=== PATIENT | male | born 1935 | race Caucasian/White ===

== ENCOUNTER 2023-03-18 23:54 | Inpatient (IN) | payer MEDICARE, OTHER, SELFPAY ==
--- NOTE | ~2023-03-18 | US_ITS ---
Duplex Sonography of the right extremity: Indication: Pain and swelling Findings: Sagittal and transverse B-mode images as well as color-flow imaging were performed on the r ight femoral and popliteal veins. B-mode examination was done without and with compression in the tr ansverse plane. There is good visualization of the common femoral, proximal profunda femoral, superf icial femoral, greater saphenous, and popliteal veins. Normal flow was seen on color-flow imaging. N ormal compressibility was demonstrated. Visualized calf veins are also patent. Impression: No evidence of deep vein thrombosis involving the right lower extremity. Reviewed, dictated and finalized at location . ANIC RECOVERY Impression: No evidence of deep vein thrombosis involving the right lower extremity.
--- NOTE | ~2023-03-18 | CT_ITS ---
Non-contrast CT scan of the Abdomen and Pelvis Clinical indication: Abdominal pain Technique: 2.5 mm axial scans were obtained through the abdomen and pelvis without intravenous or or al contrast. Dose reduction technique was used on this scan by utilizing automated exposure control a nd iterative reconstruction technique. The dose-length product (DLP) was 1716.34 mGy-cm. Findings: Images through the lung bases reveal no abnormalities. There is no evidence of renal or ureteral calculi. The kidneys and the ureters are nondilated. The liver, spleen, pancreas, gallbladder, and adrenals appear normal. There is no aortic aneurysm. There is no evidence of bowel obstruction. Images through the pelvis were performed. There is no evidence of ascites or lymphadenopathy. Urinary bladder unremarkable. No pelvic mass seen. No ascites. Chronic appearing compression fracture of T12 noted. Impression: No acute abnormality. Probable chronic T12 compression fracture. Reviewed, dictated and finalized at [facility]. RINARY ANATOMIST Impression: No acute abnormality. Probable chronic T12 compression fracture.
--- NOTE | ~2023-03-18 | XR_ITS ---
Portable chest x-ray Comparison: 05/08/2018 Clinical History: Shortness of breath Findings: Lungs are clear, without focal consolidation or pleural effusion. Cardiomediastinal silho uette is stable. Bones and soft tissues are unremarkable. Impression: Clear lungs. Reviewed, dictated and finalized at location . ABAP PROGRAMMER Impression: Clear lungs.
[2023-03-18 23:55] VITALS: BP 140/58; PULSE 100; RESP 23; TEMP 36.7; O2SAT 97
[2023-03-18 23:59] VITALS: PULSE 101
[2023-03-19] VITALS (17 sets, daily range): BP systolic 95–135; BP diastolic 42–74; PULSE 62–78; RESP 14–19; TEMP 36.2–39.5; O2SAT 96–100; BMI 26.0
--- NOTE | 2023-03-19 00:02 | ECG_ITS ---
Measurements Intervals Wilkinson Rate: 104 P: AK: 0 QRS: -33 QRSD: 133 T: -3 QT: 354 QTc: 467 Interpretive Statements NORMAL SINUS RHYTHM WITH PACS INDETERMINATE AXIS RIGHT BUNDLE BRANCH BLOCK [120+ ms QRS DURATION, UPRIGHT V1, 40+ ms S IN I/aVL/V4/V5/V6] ABNORMAL ECG COMPARED TO ECG 05/08/2018 20:42:18 SINUS RHYTHM REPLACES ATRIAL FIBRILLATION Electronically Signed On 03-19-2023 7:18:22 COMB[facility] INFORMATION CENTER OFFICER by Kwan Villalobos M.D.
[2023-03-19 01:05] LABS: Basophils Absolute Auto 0.1 K/mm3 (0.0-0.1); Basophils Percent Auto 1.2 % (0.2-1.2); Eosinophils Percent Auto 0.3 % (0-4.4); Hematocrit 27.1 % (42.0-52.0); Hemoglobin 8.2 g/dL (14.0-18.0); Immature Granulocyte Absolute 0.14 K/mm3 (0.00-0.031); Immature Granulocyte Percent A 2.3 % (0-0.5); Lymphocytes Absolute Auto 0.72 K/mm3 (0.9-3.2); Mean Corpuscular HGB Conc 30.3 g/dl (32-36); Mean Corpuscular Hemoglobin 29.9 pg (26-34); Mean Corpuscular Volume 98.9 fl (80-100); Mean Platelet Volume 9.3 fl (7.4-10.4); Monocytes Percent Auto 0.3 % (2.6-8.5); Neutrophils Absolute Auto 5.1 K/mm3 (1.3-6.7); Neutrophils Percent Auto 83.9 % (45.5-73.1); Platelet Count Result 221 k/mm3 (150-375); Red Blood Count 2.74 M/mm3 (4.6-6.20); Red Cell Distribution Width 14.6 % (11.5-14.5)
[2023-03-19 01:15] LABS: Alanine Aminotransferase 17 U/L (6-50); Albumin Level 3.6 g/dL (3.5-5.1); Alkaline Phosphatase 64 U/L (38-126); Anion Gap 11 mmol/L (8-16); Aspartate Amino Transferase 34 U/L (17-59); Bilirubin,Total 0.7 mg/dL (0.2-1.3); Blood Urea Nitrogen 31 mg/dL (9-20); Calcium 8.8 mg/dL (8.4-10.2); Carbon Dioxide 18 mmol/L (22-30); Chloride 109 mmol/L (98-107); Estimated CRCL calculation 21 ml/min; Estimated Glomerular Filt Rate 27; Glucose 115 mg/dL (65-110); Potassium 4.3 mmol/L (3.4-5.0); Sodium 138 mmol/L (137-145)
[2023-03-19] MEDS: SODIUM CHLORIDE 0.9% IV 1,000 ML 999 ML IV CONT (02:36)
[2023-03-19] MEDS: ACETAMINOPHEN 500 MG TABLET 1000 MG PO (02:37)
--- NOTE | 2023-03-19 02:41 | PC.NURSE ---
Pt vomited immediately after giving oral tylenol, provider made aware. Verbal order for 650mg Tylenol suppository.
[2023-03-19 03:15] LABS: Appearance Urine Cloudy (Clear); Bacteria Urine 4+ /hpf; Bilirubin Urine Negative (Negative); Blood Urine 2+ (Negative); Color Urine Yellow (Yellow); Glucose Urine UA Negative (Negative); Ketones Urine Negative (Negative); Leukocyte Esterase Ur 1+ LEU/UL (Negative); Nitrate Urine Negative (Negative); Non Pathogenic Casts 0-2; Protein Urine Trace mg/dL (Negative); Squamous Epithelial Cell Urine None seen /hpf (Few); Urobilinogen Urine 0.2 mg/dL (<2.0); WBC Urine 21-50 /hpf
[2023-03-19] MEDS: ONDANSETRON INJ 4 MG/2 ML VIAL IV PUSH (03:15)
[2023-03-19] MEDS: ACETAMINOPHEN 650 MG SUPPOSITORY RECTAL (03:15)
[2023-03-19 03:20] LABS: Add Urine Microscopic? YES
--- NOTE | 2023-03-19 03:52 | ED.GENADULT ---
HPI - General Adult General Chief complaint: Weakness Stated complaint: SICK CASE Time Seen by Provider: 03/19/23 02:12 History of Present Illness HPI narrative: Patient is a 8-year-old gentleman who presents emergency department with chief complaint of shakiness nausea vomiting fever generalized weakness and loose stool. The patient recently had a urological procedure at another facility and reports that symptoms started this evening patient was shaking and the family noticed that his skin felt hot and he had several episodes of vomiting. Related Data Allergies Allergy/AdvReac Type Severity Reaction Status Date / Time amoxicillin Allergy Other Verified 03/19/23 02:43 Review of Systems Review of Systems: A 10 system review of systems was completed on the patient and is negative except for what is stated in the HPI. Nursing and ancillary documentation was reviewed. Exam Narrative: GENERAL: Well-appearing, well-nourished, and in no acute distress. HEAD: Normocephalic, atraumatic. EYES: PERRLA and EOMI. ENT: Nares clear, no rhinorrhea or epistaxis. Mucous membranes moist. NECK: Supple. CHEST: Clear to auscultation. No respiratory distress. HEART: Regular rate and rhythm. No murmur heard. Normal peripheral pulses. ABDOMEN: Soft, nontender, nondistended, normal active bowel sounds. EXTREMITIES: Normal range of motion. No edema. SKIN: Warm, dry, no rash. NEURO: No focal deficits. Alert and oriented x3. PSYCH: Normal mood and affect. Course Vital Signs Vital signs: Vital Signs Temperature 36.7 C 03/18/23 23:55 Pulse Rate 100 03/18/23 23:55 Respiratory Rate 23 H 03/18/23 23:55 Blood Pressure 140/58 L 03/18/23 23:55 Pulse Oximetry 97 03/18/23 23:55 Oxygen Delivery Room Air 03/18/23 23:55 Temperature 39.5 C H 03/19/23 02:30 Pulse Rate 101 H 03/18/23 23:59 Respiratory Rate 23 H 03/18/23 23:55 Blood Pressure 140/58 L 03/18/23 23:55 Pulse Oximetry 97 03/18/23 23:55 Oxygen Delivery Room Air 03/18/23 23:55 Medical Decision Making Vital Signs Vital Signs: Vital Signs Temperature 36.7 C 03/18/23 23:55 Pulse Rate 100 03/18/23 23:55 Respiratory Rate 23 H 03/18/23 23:55 Blood Pressure 140/58 L 03/18/23 23:55 Pulse Oximetry 97 03/18/23 23:55 Oxygen Delivery Room Air 03/18/23 23:55 Temperature 39.5 C H 03/19/23 02:30 Pulse Rate 101 H 03/18/23 23:59 Respiratory Rate 23 H 03/18/23 23:55 Blood Pressure 140/58 L 03/18/23 23:55 Pulse Oximetry 97 03/18/23 23:55 Oxygen Delivery Room Air 03/18/23 23:55 Lab Data 03/19/23 00:58 03/19/23 00:58 Labs: Lab Results 03/19/23 03/19/23 Range/Units 00:58 04:15 WBC 6.0 (4.5-10.0) K/mm3 RBC 2.74 L (4.6-6.20) M/mm3 Hgb 8.2 L (14.0-18.0) g/dL Hct 27.1 L (42.0-52.0) % MCV 98.9 (80-100) fl MCH 29.9 (26-34) pg MCHC 30.3 L (32-36) g/dl RDW 14.6 H (11.5-14.5) % Plt Count 221 (150-375) k/mm3 MPV 9.3 (7.4-10.4) fl Immature Gran % (Auto) 2.3 H (0-0.5) % Neut % (Auto) 83.9 H (45.5-73.1) % Lymph % (Auto) 12.0 L (18.3-44.2) % Upson % (Auto) 0.3 L (2.6-8.5) % Eos % (Auto) 0.3 (0-4.4) % Baso % (Auto) 1.2 (0.2-1.2) % Lymph # (Auto) 0.72 L (0.9-3.2) K/mm3 Upson # (Auto) 0.0 L (0.1-0.6) K/mm3 Eos # (Auto) 0.0 (0-0.3) K/mm3 Baso # (Auto) 0.1 (0.0-0.1) K/mm3 Abs Immat Gran (auto) 0.14 H (0.00-0.031) K/mm3 Absolute Neuts (auto) 5.1 (1.3-6.7) K/mm3 Absolute Nucleated RBC 0.0 (0.0-0.012) K/mm3 Nucleated RBC % 0.0 (0.0-0.2) % PT 24.0 H (11.1-14.7) Seconds INR 2.0 APTT 47.8 H (22.3-36.8) SECONDS Sodium 138 (137-145) mmol/L Potassium 4.3 (3.4-5.0) mmol/L Chloride 109 H (98-107) mmol/L Carbon Dioxide 18 L (22-30) mmol/L Anion Gap 11 (8-16) mmol/L BUN 31 H (9-20) mg/dL Creatinine 2.30 H (0.7-1.3) mg/dL Estim Creat Clear Calc 21 ml/min Queta
[2023-03-19 04:37] LABS: Lactic Acid Reflex 1.4 mmol/L (0.7-2.0); Partial Thromboplastin Time 47.8 SECONDS (22.3-36.8)
[2023-03-19 04:38] LABS: Lipase 47 U/L (23-300)
[2023-03-19 04:54] LABS: Procalcitonin 50.6 ng/mL
[2023-03-19 05:04] LABS: Influenza A QL RT-PCR Negative (Negative); Influenza B QL RT-PCR Negative (Negative); RSV RNA, RT-PCR Negative (Negative); SARS-CoV-2 RNA PCR Negative (Negative)
[2023-03-19] MEDS: ASPIRIN 81 MG CHEWABLE TABLET 324 MG PO (05:16)
[2023-03-19] MEDS: HEPARIN SODIUM 5,000 UNITS/ML VIAL 4000 UNITS IV PUSH (06:12)
[2023-03-19] MEDS: HEPARIN SOD/D5W 100 UNITS/ML 25,000 UNITS/250 ML BAG 10 UNITS IV CONT (06:13)
[2023-03-19 11:41] LABS: Basophils Absolute Auto 0.1 K/mm3 (0.0-0.1); Basophils Percent Auto 0.6 % (0.2-1.2); Hematocrit 24.1 % (42.0-52.0); Hemoglobin 7.4 g/dL (14.0-18.0); Immature Granulocyte Absolute 0.41 K/mm3 (0.00-0.031); Immature Granulocyte Percent A 2.3 % (0-0.5); Lymphocytes Absolute Auto 1.12 K/mm3 (0.9-3.2); Lymphocytes Percent Auto 6.4 % (18.3-44.2); Mean Corpuscular HGB Conc 30.7 g/dl (32-36); Mean Corpuscular Hemoglobin 29.8 pg (26-34); Mean Corpuscular Volume 97.2 fl (80-100); Mean Platelet Volume 8.8 fl (7.4-10.4); Monocytes Absolute Auto 1.1 K/mm3 (0.1-0.6); Monocytes Percent Auto 6.2 % (2.6-8.5); Neutrophils Absolute Auto 14.8 K/mm3 (1.3-6.7); Neutrophils Percent Auto 84.5 % (45.5-73.1); Platelet Count Result 171 k/mm3 (150-375); Red Blood Count 2.48 M/mm3 (4.6-6.20); Red Cell Distribution Width 14.7 % (11.5-14.5); White Blood Count 17.5 K/mm3 (4.5-10.0)
[2023-03-19 11:56] LABS: INR 1.7
[2023-03-19 12:10] LABS: Partial Thromboplastin Time 181.5 SECONDS (22.3-36.8)
--- NOTE | 2023-03-19 14:17 | PM.CNCAR ---
Assessment and Plan Assessment and plan (1) Non-ST elevation GA (NSTEMI): Code(s): I21.4 - Non-ST elevation (NSTEMI) myocardial infarction Status: Acute Plan This is an 88-year-old man with a history of atrial fibrillation back in 2019 he has not had a recognized recurrence since then. He has been seeing my partner and has been maintained on Xarelto as well as a modest dose of metoprolol. He now is hospitalized with the above described symptoms he is not having any symptoms compatible with an acute coronary syndrome he is not known to have coronary disease and he does not have any ECG evidence of this. I would conclude this is a type 2 myocardial infarction resulting from the stress of significant anemia. He also has carcinoma of the bladder and is significantly anemic at this time. In my opinion he should not be anticoagulated I will stop both the heparin and the Xarelto. We will continue him on low-dose metoprolol for the time being. He does not require and is not a candidate for invasive ischemia evaluation particularly given his lack of any chest pain symptoms. We will follow him with you during this hospitalization. Kwan Villalobos MD [facility] History of Present Illness History of Present Illness Consult date/time: 03/19/23 14:17 Reason For Visit: UTI/NSTEMI Narrative: This is a 88-year-old man I am seeing at the request of the hospitalist because of elevation in his troponin which yielded the admitting diagnosis of non ST elevation GA. The patient is a is known to my partner, Dr. Ivey but not known to me prior to this consultation. He was brought to the hospital yesterday by his family because he was feeling unwell they thought he had an infection with shaking and chills and felt distally had a fever. Apparently he was seen in the emergency room with these complaints he did have a modest fever and he was told that they thought the probably had a urinary tract infection. He is not reporting any sense of chest pain pressure heaviness. He sees my partner for follow-up regarding an episode of atrial fibrillation that occurred back in 2018 when he was here at this hospital. For that he has been managed with a low dose of metoprolol and Xarelto at 15 mg daily. For whatever reason troponin levels were sampled in the emergency room x3 sets and they are significantly elevated between 1.2 and 1.9. His electrocardiogram shows sinus rhythm with PACs and a right bundle branch block. According to his old records the right bundle branch block is not new. There are no changes of acute injury or ischemia. He has no prior history of coronary artery disease. He does have a somewhat complicated history of carcinoma of his bladder at which is being managed elsewhere as well as a history of pain management injections in his low back. He states that after a recent pain management injection he has had difficulty with pain in the right leg and swelling in the right leg. His PCP had him do a lower extremity Doppler within the last week to rule out a blood clot. The he says that was negative for evidence of a DVT. Following admission to the hospital he was placed on intravenous heparin and we were asked to see him in consultation. Of concern his hemoglobin has come down g. He says that he has been known to have borderline anemia in the past but his PCP has not indicated that he has a significant problem with anemia. He has intravenous heparin running at this time I come in the room to see him as stated above he is also anticoagulated with oral Xarelto. Review of Systems Constitutional: Constitutional: Reports lethargy Eyes: Eyes: Reports no additional eye complaints ENT: Reports system reviewed and no additional complaints, except as documented Cardiovascular: Cardiovascular: Reports no additional cardiovascular complaints Respiratory: Respiratory: Reports no additional respiratory complaints Gastrointestinal: Gastrointestinal: Rep
--- NOTE | 2023-03-19 14:17 | PC.NURSE ---
Reported Critical Trop of 1.810, aPTT 181.5 Heparin placed on Hold due to Critical aPtt per protocol. Notified Marilyn Cintron NP with no new interventions needed at this time 1357 Entry delayed due to pt care coordination
--- NOTE | 2023-03-19 14:33 | PM.IMHP ---
H&P: HPI History of Present Illness Date/Time: 03/19/23 14:15 Chief Complaint: Multiple complaints. Narrative: This is a very pleasant 88-year-old gentleman with paroxysmal atrial fibrillation on anticoagulation, bladder cancer, chronic kidney disease, and chronic anemia who presented to the emergency department via EMS from home for evaluation of multiple complaints. The patient provides the following history. He had an outpatient cystoscopy done on on Wednesday at [facility] in [place] and was feeling fine up until yesterday evening when he developed sudden and uncontrollable shivers with profound weakness, nausea, and vomiting. He presented to the ER just before midnight with stable vital signs however he spiked a temperature to 103.1? F and his blood pressures dropped shortly thereafter. A broad workup was initiated and he was found to have a WBC count of 6.0 although that increased to 17.5 this morning, hemoglobin 8.2, BUN 31, creatinine 2.30, lactic acid 1.4, troponin 1.290, procalcitonin 50.6. UA showed 2+ blood, 1+ leukocyte esterase, 11-20 RBC, 21-50 WBC, 4+ bacteria. CT of the abdomen and pelvis showed no acute findings. EKG showed a sinus rhythm with PACs, intermediate axis, and right bundle branch block. Intervention in the ED included a 2 liter bolus of normal saline, 1 gram ceftriaxone for UTI (has had mild dysuria since cystoscopy), and he was started on a heparin drip given his troponin elevation (denies chest pain). Of the time my evaluation he is feeling much better and he does not have any current complaints. He specifically denies headache, vertigo, focal weakness, paresthesias, facial droop, difficulty speaking and swallowing, neck ache, sinus congestion, sore throat, cough, pleuritic pain, shortness of breath, abdominal pain, hematemesis, melena, hematochezia, diarrhea, and hematuria. Review of Systems Review of Systems: Twelve systems were reviewed and are negative except as for HPI. [facility] Past Medical History Medical History (Updated 03/19/23 @ 14:53 by Colette Mcgee PA-C) Arthritis Bladder cancer Chronic anemia Chronic anticoagulation Chronic kidney disease, stage 3 Paroxysmal atrial fibrillation Surgical History Surgical History (Updated 03/19/23 @ 22:02 by Colette Mcgee PA-C) History of cataract extraction (2022) History of cystoscopy Family History Family History Father Prostate carcinoma Social History Social History (Updated 03/19/23 @ 22:04 by Colette Mcgee PA-C) Social History: Surrogate medical decision maker: Donya Lui, spouse. Code status: Full code. Smoking status: Former smoker Smoking end date: 04/09/1967 Additional living arrangements comments: Lives with spouse in [place]. 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 Meds Home Medications and Allergies Home Medications Medication Instructions Recorded Confirmed Type cholecalciferol (vitamin D3) 2,000 unit PO DAILY 03/19/23 03/19/23 History ferrous sulfate 324 mg PO DAILY 03/19/23 03/19/23 History finasteride 5 mg tablet 5 mg PO DAILY 03/19/23 03/19/23 History folic acid 1 mg PO DAILY 03/19/23 03/19/23 History metoprolol tartrate 25 mg tablet 12.5 mg BID 03/19/23 03/19/23 History rivaroxaban 15 mg tablet (Xarelto) 15 mg PO DAILY 03/19/23 03/19/23 History tamsulosin 0.4 mg capsule 0.4 mg PO DAILY 03/19/23 03/19/23 History Allergies Allergy/AdvReac Type Severity Reaction Status Date / Time amoxicillin Allergy Other Verified 03/19/23 02:43 Vital Signs Vital Signs - 24 hr 03/18/23 23:55 03/18/23 23:59 03/19/23 02:30 Temperature 98.0 F 103.1 F H Pulse Rate 100 101 H Respiratory Rate 23 H Blood Pressure 140/58 L Pulse Oximetry 97 Oxygen Delivery Room Air 03/19/23 08:19 03/19/23 08:30 03/19/23 08:45 Temperature Pulse Rate 78 78 73 Respiratory Rate 17 19 18
--- NOTE | 2023-03-19 16:28 | PC.NURSE ---
The Spouse requested that her number be updated in the chart to reflect [phone]. Per admitting The number will be updated to reflect the needed changes
[2023-03-19] MEDS: MEROPENEM 1 GM/NS 100 ML 1 GM/100 ML BAG IVPB (17:57)
[2023-03-19] MEDS: LACTATED RINGERS 1,000 ML 80 ML IV CONT (17:59)
[2023-03-19 18:53] LABS: Partial Thromboplastin Time 52.8 SECONDS (22.3-36.8)
[2023-03-20] VITALS (19 sets, daily range): BP systolic 94–137; BP diastolic 52–63; PULSE 58–97; RESP 16–20; TEMP 36.3–37.2; O2SAT 98–100
--- NOTE | 2023-03-20 | ECHO_ITS ---
Patient Info Name: Job Jacques Age: 88 years : 1935 Gender: Male Ht: 69 in Wt: 169 lbs BSA: 1.94 m2 HR: 110 bpm BP: 94 / 53 mmHg Heart Rhythm: Sinus Rhythm Technical Quality: Fair Exam Date: 03/20/2023 10:36 AM Exam Location: Echo Lab Exam Room: [facility] Patient Status: Inpatient Admit Date: 03/19/2023 Staff Ordering Physician: Mamadou Harding MD Cocoa Bean Cleaner: Gracy Herrera RDCS Attending Provider: Natalee Hastings Referring Physician: Mehdi HERNANDEZ; Exam Type: CA echo doppler color flow Study Info Indications - NSTEMI AFIB Complete two-dimensional, color flow and Doppler transthoracic echocardiogram is performed. Summary 1. Complete two-dimensional, color flow and Doppler transthoracic echocardiogram is performed. 2. Left ventricular chamber dimension is normal. 3. Left ventricular systolic function is normal, estimated at 55-60%. 4. There is mildly increased left ventricular wall thickness. 5. The left ventricular diastolic function is grade I diastolic dysfunction. 6. The basal inferoseptal, mid inferoseptal, and basal anteroseptal are hypokinetic. 7. Left atrial chamber dimension is mildly enlarged. 8. There is mild mitral valve regurgitation. 9. There is mild tricuspid valve regurgitation. 10. Mild pulmonary hypertension, estimated pulmonary arterial systolic pressure is 38 mmHg. 11. There is mild pulmonic regurgitation. Left Ventricle Left ventricular chamber dimension is normal. Left ventricular systolic function is normal, estimated at 55-60%. There is mildly increased left ventricular wall thickness. The left ventricular diastolic function is grade I diastolic dysfunction. The basal inferoseptal, mid inferoseptal, and basal anteroseptal are hypokinetic. All other wade appear normal. Right Ventricle Right ventricular chamber dimension is normal. Right ventricular systolic function is normal. Left Atria Left atrial chamber dimension is mildly enlarged. Right Atria Right atrial chamber dimension is normal. Atrial Septum Intact interatrial septum visualized by color flow imaging. Aortic Valve The aortic valve is probable trileaflet. There is mild aortic valve sclerosis. There is no aortic valve stenosis. There is trace aortic valve regurgitation. Pulmonic Valve The pulmonic valve is normal. There is no pulmonic valve stenosis. There is mild pulmonic regurgitation. Mitral Valve The mitral valve has normal leaflets. There is no mitral valve stenosis. There is mild mitral valve regurgitation. Tricuspid Valve The tricuspid valve leaflets are normal. There is no significant tricuspid valve stenosis. There is mild tricuspid valve regurgitation. Mild pulmonary hypertension, estimated pulmonary arterial systolic pressure is 38 mmHg. Pericardium/Pleural The pericardium appears normal. There is no pericardial effusion. Inferior Vena Cava Normal inferior vena cava with >50% collapse upon inspiration consistent with normal right atrial pressure, 10 mmHg. Aorta The aortic root size at the sinus of Valsalva is normal. Left Ventricular Outflow Tract Name Value Normal LVOT 2D LVOT Diameter 2.1 cm LVOT Doppler LVOT Peak Gradient
[2023-03-20] MEDS: METOPROLOL TARTRATE 12.5 MG TABLET BY MOUTH ×3 (01:03→20:23)
[2023-03-20] MEDS: ACETAMINOPHEN 325 MG TABLET 650 MG PO ×2 (03:57→18:52)
[2023-03-20] MEDS: MEROPENEM 1 GM/NS 100 ML 1 GM/100 ML BAG IVPB ×2 (04:00→18:53)
[2023-03-20 04:56] LABS: Basophils Absolute Auto 0.1 K/mm3 (0.0-0.1); Basophils Percent Auto 1.1 % (0.2-1.2); Eosinophils Percent Auto 0.2 % (0-4.4); Hematocrit 26.7 % (42.0-52.0); Hemoglobin 8.2 g/dL (14.0-18.0); Immature Granulocyte Percent A 1.1 % (0-0.5); Lymphocytes Absolute Auto 0.69 K/mm3 (0.9-3.2); Lymphocytes Percent Auto 7.8 % (18.3-44.2); Mean Corpuscular HGB Conc 30.7 g/dl (32-36); Mean Corpuscular Hemoglobin 29.9 pg (26-34); Mean Corpuscular Volume 97.4 fl (80-100); Mean Platelet Volume 9.6 fl (7.4-10.4); Monocytes Absolute Auto 0.3 K/mm3 (0.1-0.6); Monocytes Percent Auto 3.3 % (2.6-8.5); Neutrophils Absolute Auto 7.7 K/mm3 (1.3-6.7); Neutrophils Percent Auto 86.5 % (45.5-73.1); Platelet Count Result 188 k/mm3 (150-375); Red Blood Count 2.74 M/mm3 (4.6-6.20); Red Cell Distribution Width 14.8 % (11.5-14.5); White Blood Count 8.9 K/mm3 (4.5-10.0)
[2023-03-20 05:10] LABS: Anion Gap 9 mmol/L (8-16); Blood Urea Nitrogen 34 mg/dL (9-20); Calcium 8.4 mg/dL (8.4-10.2); Carbon Dioxide 19 mmol/L (22-30); Chloride 113 mmol/L (98-107); Estimated CRCL calculation 21 ml/min; Estimated Glomerular Filt Rate 27; Glucose 106 mg/dL (65-110); Magnesium 2.2 mg/dL (1.6-2.3); Potassium 3.9 mmol/L (3.4-5.0); Sodium 141 mmol/L (137-145)
[2023-03-20] MEDS: TAMSULOSIN HCL 0.4 MG CAPSULE PO (09:14)
[2023-03-20] MEDS: CHOLECALCIFEROL 1,000 UNITS TABLET 2000 UNITS PO (09:14)
[2023-03-20] MEDS: FINASTERIDE 5 MG TABLET PO (09:14)
[2023-03-20] MEDS: FOLIC ACID 1 MG TABLET PO (09:14)
[2023-03-20] MEDS: FERROUS SULFATE 325 MG TABLET DR BY MOUTH (09:14)
--- NOTE | 2023-03-20 09:20 | PM.PNCARD ---
Progress Note: A&P Assessment and Plan (1) Non-ST elevation UT (NSTEMI): Code(s): I21.4 - Non-ST elevation (NSTEMI) myocardial infarction Status: Acute Assessment and Plan: Likely type 2 from significant anemia. Hold anticoagulation. Continue metoprolol. Also hold off on anti-platelet therapy given his anemia. Will order a 2D echocardiogram Doppler. Will also add a statin to regimen the form atorvastatin 20 mg daily Plan This is an 88-year-old man with a history of atrial fibrillation back in 2019 he has not had a recognized recurrence since then. He has been seeing my partner and has been maintained on Xarelto as well as a modest dose of metoprolol. He now is hospitalized with the above described symptoms he is not having any symptoms compatible with an acute coronary syndrome he is not known to have coronary disease and he does not have any ECG evidence of this. I would conclude this is a type 2 myocardial infarction resulting from the stress of significant anemia. He also has carcinoma of the bladder and is significantly anemic at this time. In my opinion he should not be anticoagulated I will stop both the heparin and the Xarelto. We will continue him on low-dose metoprolol for the time being. He does not require and is not a candidate for invasive ischemia evaluation particularly given his lack of any chest pain symptoms. We will follow him with you during this hospitalization. Subjective Date/time seen: 03/20/23 09:20 Interval history: 88-year-old admitted for UTI Date of service 03/20 24: He feels fine and without chest pain or shortness of breath. Review of Systems Constitutional: Constitutional: Reports lethargy Eyes: Eyes: Reports no additional eye complaints ENT: Reports system reviewed and no additional complaints, except as documented Cardiovascular: Cardiovascular: Reports no additional cardiovascular complaints Respiratory: Respiratory: Reports no additional respiratory complaints Gastrointestinal: Gastrointestinal: Reports no additional gastrointestinal complaints Genitourinary: Genitourinary: Reports no additional male genitourinary complaints Neurologic: Reports system reviewed and no additional complaints, except as documented Endocrine: Endocrine: Reports no additional endocrine complaints Hematologic/Lymphatic: Hematologic/Lymphatic: Reports no additional hematologic/lymphatic complaints Allergic/Immunologic: Allergic/Immunologic: Reports no additional allergic/immunologic complaints Exam Const: General: comfortable HENMT: Mouth: Yes moist mucous membranes Eyes: Sclera: sclerae normal Neck: Neck: supple and no JVD Other: Carotid pulses are intact normal in character bilaterally Resp: Effort & Inspection: normal respiratory effort Auscultation: clear to auscultation bilaterally Cardio: Rate: regular rate Rhythm: regular rhythm Other: Occasional extrasystoles, very soft systolic murmur does not radiate from the left sternal border GI: Auscultation: normal bowel sounds Skin: General skin exam: normal color Neuro: Speech: normal speech Other: Alert and oriented x3 Extrem: Other: 1+ right lower extremity Psych: Affect: normal affect Objective Data Vital Signs Vital Signs: Vital Signs - 24 hr 03/19/23 09:26 03/19/23 09:29 03/19/23 11:41 Temperature 36.3 C L Pulse Rate 71 Respiratory Rate 14 Blood Pressure 135/74 96/50 L Pulse Oximetry 100 Oxygen Delivery Room Air 03/19/23 11:49 03/19/23 12:00 03/19/23 12:40 Temperature 36.2 C L Pulse Rate 64 62 63 Respiratory Rate 18 Blood Pressure 95/48 L Pulse Oximetry 99 Oxygen Delivery 03/19/23 16:05 03/19/23 16:00 03/19/23 14:00 Temperature 36.4 C Pulse Rate 67 63 Respiratory Rate 16 Blood Pressure 101/42 L Pulse Oximetry 99 Oxygen Delivery Room Air 03/19/23 16:00 03/19/23 18:00 03/19/23 20:00 Temperature 36.4
--- NOTE | 2023-03-20 13:09 | P.PNIM_ITS ---
Progress Note: A&P Assessment and Plan (1) Sepsis: Code(s): A41.9 - Sepsis, unspecified organism Status: Acute Assessment and Plan: * No longer meeting sepsis criteria. * Continue Abx of Meropenem awaiting urine cx results. * Continue to monitor VS and trend labs. (2) Urinary tract infection: Code(s): N39.0 - Urinary tract infection, site not specified Status: Acute Assessment and Plan: * Continue meropenem. * Await culture report and adjust abx therapy as needed. (3) Acute on chronic kidney failure: Code(s): N17.9 - Acute kidney failure, unspecified; N18.9 - Chronic kidney disease, unspecified Status: Acute Assessment and Plan: * Baseline 1.5-1.6 historically. Current Cr is 2.3. * Continue IVF of LR at 80 ml/hr for hydration. * Monitor labs and trend (4) Non-ST elevation myocardial infarction (NSTEMI): Code(s): I21.4 - Non-ST elevation (NSTEMI) myocardial infarction Status: Acute Assessment and Plan: * Cardiology co-managing. * Xarelto held per their recommendations secondary to pt being chronically anemic. Will also avoid any anti-platelet medications. * No s/s of ACS or complaints of CP. * Cardiology added statin of Lipitor 20 mg to medications and recommended continuation of Beta Giovani. * No EKG changes to define ACS. Pt in NSR at the time of my exam. * ECHO obtained today. (5) Paroxysmal atrial fibrillation: Code(s): I48.0 - Paroxysmal atrial fibrillation Status: Acute Assessment and Plan: * SCD's ordered in the setting that we are holding Xarelto per Cardiology recs. * Monitor on telemetry. * Continue Beta giovani for rate control. (6) Chronic anticoagulation: Code(s): Z79.01 - longterm (current) use of anticoagulants Status: Acute Assessment and Plan: * Currently holding Xarelto. (7) Bladder cancer: Code(s): C67.9 - Malignant neoplasm of bladder, unspecified Status: Acute Assessment and Plan: * Most recent cystoscopy was three days ago. No malignancies were appreciated according to the pt. (8) Chronic anemia: Code(s): D64.9 - Anemia, unspecified Status: Acute Assessment and Plan: * Chronic in nature, likely secondary to CKD. * Continue to monitor and trend serial labs including CBC. * No acute s/s of acute bleeding. (9) Edema of right lower extremity: Code(s): R60.0 - Localized edema Status: Chronic Assessment and Plan: * Pt states has been present for the past three months. * As pt has pain and he states the swelling is persistent, will order venous doppler to rule out any DVT. Time Spent With Patient Time with patient: 25 - 35 minutes Subjective Date/time seen: 03/20/23 1030 Interval history: This pt was examined at the bedside this AM after he was admitted overnight with NSTEMI, Sepsis, UTI, and EDIE. He has been evaluated by Cardiology who deemed his elevated trops to be secondary to his significant anemia, and therefore anticoagulation is being held and they do not recommend starting any anti- platelet therapy. He had ECHO performed today with results pending and the pt has been without any acute complaints of CP or ACS. His EKG at the time of my exam demonstrated NSR. Atorvastatin 20 mg po daily was added to his regimen today by Cardiology. He continues to remain on IV abx of Meropenem for his UTI, and is no longer meeting Sepsis criteria. We are currently awaiting results of culture and will adjust therapy as needed. Pt. has no new complaints today but does alonso
--- NOTE | 2023-03-20 13:09 | PM.IMPN ---
Progress Note: A&P Assessment and Plan (1) Sepsis: Code(s): A41.9 - Sepsis, unspecified organism Status: Acute Assessment and Plan: No longer meeting sepsis criteria. Continue Abx of Meropenem awaiting urine cx results. Continue to monitor VS and trend labs. (2) Urinary tract infection: Code(s): N39.0 - Urinary tract infection, site not specified Status: Acute Assessment and Plan: Continue meropenem. Await culture report and adjust abx therapy as needed. (3) Acute on chronic kidney failure: Code(s): N17.9 - Acute kidney failure, unspecified; N18.9 - Chronic kidney disease, unspecified Status: Acute Assessment and Plan: Baseline 1.5-1.6 historically. Current Cr is 2.3. Continue IVF of LR at 80 ml/hr for hydration. Monitor labs and trend (4) Non-ST elevation myocardial infarction (NSTEMI): Code(s): I21.4 - Non-ST elevation (NSTEMI) myocardial infarction Status: Acute Assessment and Plan: Cardiology co-managing. Xarelto held per their recommendations secondary to pt being chronically anemic. Will also avoid any anti-platelet medications. No s/s of ACS or complaints of CP. Cardiology added statin of Lipitor 20 mg to medications and recommended continuation of Beta Giovani. No EKG changes to define ACS. Pt in NSR at the time of my exam. ECHO obtained today. (5) Paroxysmal atrial fibrillation: Code(s): I48.0 - Paroxysmal atrial fibrillation Status: Acute Assessment and Plan: SCD's ordered in the setting that we are holding Xarelto per Cardiology recs. Monitor on telemetry. Continue Beta giovani for rate control. (6) Chronic anticoagulation: Code(s): Z79.01 - detention (current) use of anticoagulants Status: Acute Assessment and Plan: Currently holding Xarelto. (7) Bladder cancer: Code(s): C67.9 - Malignant neoplasm of bladder, unspecified Status: Acute Assessment and Plan: Most recent cystoscopy was three days ago. No malignancies were appreciated according to the pt. (8) Chronic anemia: Code(s): D64.9 - Anemia, unspecified Status: Acute Assessment and Plan: Chronic in nature, likely secondary to CKD. Continue to monitor and trend serial labs including CBC. No acute s/s of acute bleeding. (9) Edema of right lower extremity: Code(s): R60.0 - Localized edema Status: Chronic Assessment and Plan: Pt states has been present for the past three months. As pt has pain and he states the swelling is persistent, will order venous doppler to rule out any DVT. Time Spent With Patient Time with patient: 25 - 35 minutes Subjective Date/time seen: 03/20/23 1030 Interval history: This pt was examined at the bedside this AM after he was admitted overnight with NSTEMI, Sepsis, UTI, and EDIE. He has been evaluated by Cardiology who deemed his elevated trops to be secondary to his significant anemia, and therefore anticoagulation is being held and they do not recommend starting any anti-platelet therapy. He had ECHO performed today with results pending and the pt has been without any acute complaints of CP or ACS. His EKG at the time of my exam demonstrated NSR. Atorvastatin 20 mg po daily was added to his regimen today by Cardiology. He continues to remain on IV abx of Meropenem for his UTI, and is no longer meeting Sepsis criteria. We are currently awaiting results of culture and will adjust therapy as needed. Pt. has no new complaints today but does mention to me that he has been worked up recently for persistent swelling of the RLE for the past three weeks and believes he had a negative venous doppler, but unsure of when. He states his PCP is sending him to a vascular surgeon for further evaluation, but does endorse some pain up on the distal RLE. Will obtain a venous doppler while here. Review of Systems Review of Systems: All systems review
[2023-03-21] VITALS (14 sets, daily range): BP systolic 101–143; BP diastolic 47–85; PULSE 60–87; RESP 16–18; TEMP 36.1–38.3; O2SAT 97–100
[2023-03-21] MEDS: LACTATED RINGERS 1,000 ML 80 ML IV CONT (02:11)
[2023-03-21] MEDS: MEROPENEM 1 GM/NS 100 ML 1 GM/100 ML BAG IVPB (04:08)
[2023-03-21 05:23] LABS: Basophils Absolute Auto 0.1 K/mm3 (0.0-0.1); Basophils Percent Auto 2.1 % (0.2-1.2); Hemoglobin 7.5 g/dL (14.0-18.0); Immature Granulocyte Absolute 0.11 K/mm3 (0.00-0.031); Immature Granulocyte Percent A 2.9 % (0-0.5); Lymphocytes Percent Auto 39.1 % (18.3-44.2); Mean Corpuscular HGB Conc 31.3 g/dl (32-36); Mean Corpuscular Hemoglobin 30.1 pg (26-34); Mean Corpuscular Volume 96.4 fl (80-100); Monocytes Absolute Auto 0.6 K/mm3 (0.1-0.6); Monocytes Percent Auto 15.9 % (2.6-8.5); Neutrophils Absolute Auto 1.5 K/mm3 (1.3-6.7); Platelet Count Result 159 k/mm3 (150-375); Red Blood Count 2.49 M/mm3 (4.6-6.20); Red Cell Distribution Width 14.6 % (11.5-14.5); White Blood Count 3.8 K/mm3 (4.5-10.0)
[2023-03-21 05:37] LABS: Alanine Aminotransferase 15 U/L (6-50); Albumin Level 2.8 g/dL (3.5-5.1); Alkaline Phosphatase 53 U/L (38-126); Anion Gap 4 mmol/L (8-16); Aspartate Amino Transferase 37 U/L (17-59); Bilirubin,Total 0.4 mg/dL (0.2-1.3); Blood Urea Nitrogen 25 mg/dL (9-20); Calcium 8.3 mg/dL (8.4-10.2); Carbon Dioxide 24 mmol/L (22-30); Chloride 111 mmol/L (98-107); Estimated CRCL calculation 24 ml/min; Estimated Glomerular Filt Rate 32; Glucose 111 mg/dL (65-110); Sodium 139 mmol/L (137-145)
[2023-03-21 05:56] LABS: Platelet Estimate Adequate (Adequate)
[2023-03-21 05:59] LABS: Anisocytosis 1+ (NORMAL); Hypochromasia 1+ (NORMAL); Microcytosis 2+ (NORMAL); Platelet Clumps Present; Poikilocytosis 1+ (NORMAL)
[2023-03-21 06:00] LABS: Burr Cells 1+ (NORMAL); Ovalocytes 1+ (NORMAL)
[2023-03-21 06:03] LABS: Schistocytes None Seen (NORMAL)
--- NOTE | 2023-03-21 07:50 | P.PNIM_ITS ---
Progress Note: A&P Assessment and Plan (1) Sepsis: Code(s): A41.9 - Sepsis, unspecified organism Status: Acute Assessment and Plan: * No longer meeting sepsis criteria. * Change Abx from Meropenem to Cipro based on sensitivity results and allergy hx. Urine culture grew out E coli. * Continue to monitor VS and trend labs. * No Bacteremia (2) Urinary tract infection: Code(s): N39.0 - Urinary tract infection, site not specified Status: Acute Assessment and Plan: * E.coli with pansensitivity present. * Meropenem changed to po Cipro. (3) Acute on chronic kidney failure: Code(s): N17.9 - Acute kidney failure, unspecified; N18.9 - Chronic kidney disease, unspecified Status: Acute Assessment and Plan: * Baseline 1.5-1.6 historically. Current Cr is trending back to baseline and is currently 2.0. * Continue IVF of LR at 80 ml/hr for hydration. * Monitor labs and trend (4) Non-ST elevation myocardial infarction (NSTEMI): Code(s): I21.4 - Non-ST elevation (NSTEMI) myocardial infarction Status: Acute Assessment and Plan: * Cardiology co-managing. * Xarelto held per their recommendations secondary to pt being chronically anemic with waxing and waning hemoglobin. Will also avoid any anti-platelet medications. * No s/s of ACS or complaints of CP. * Cardiology added statin of Lipitor 20 mg to medications and recommended continuation of Beta Giovani. * No EKG changes to define ACS. Pt in NSR at the time of my exam. * ECHO obtained yesterday that shows normal left ventricular systolic function with an ejection fraction estimated to be 55-60%. There is grade 1 diastolic dysfunction and mild pulmonary hypertension. (5) Paroxysmal atrial fibrillation: Code(s): I48.0 - Paroxysmal atrial fibrillation Status: Acute Assessment and Plan: * SCD's ordered in the setting that we are holding Xarelto per Cardiology recs. * Monitor on telemetry. * Continue Beta giovani for rate control. * May move out of IMU. (6) Chronic anticoagulation: Code(s): Z79.01 - long-term (current) use of anticoagulants Status: Acute Assessment and Plan: * Currently holding Xarelto per cardiology recommendations. (7) Bladder cancer: Code(s): C67.9 - Malignant neoplasm of bladder, unspecified Status: Acute Assessment and Plan: * Most recent cystoscopy was this past week. No malignancies were appreciated according to the pt. (8) Chronic anemia: Code(s): D64.9 - Anemia, unspecified Status: Acute Assessment and Plan: * Chronic in nature, likely secondary to CKD. * Continue to monitor and trend serial labs including CBC. * No acute s/s of acute bleeding. (9) Edema of right lower extremity: Code(s): R60.0 - Localized edema Status: Chronic Assessment and Plan: * Pt states has been present for the past three months. * As pt has pain and he states the swelling is persistent, will order venous doppler to rule out any DVT. Plan I discussed today's plan care with patient, all questions were answered to the patient's satisfaction he agrees with plan care. Time Spent With Patient Time with patient: 25 - 35 minutes Subjective Date/time seen: 03/21/23 07:50 Interval history: This very pleasant 88-year-old male patient was examined at the bedside today in interval assessment. He reports he slept well overnight, has no acute complaints other than being sore from the pressure applied yesterday during his echocardiogram
--- NOTE | 2023-03-21 07:50 | PM.IMPN ---
Progress Note: A&P Assessment and Plan (1) Sepsis: Code(s): A41.9 - Sepsis, unspecified organism Status: Acute Assessment and Plan: No longer meeting sepsis criteria. Change Abx from Meropenem to Cipro based on sensitivity results and allergy hx. Urine culture grew out E coli. Continue to monitor VS and trend labs. No Bacteremia (2) Urinary tract infection: Code(s): N39.0 - Urinary tract infection, site not specified Status: Acute Assessment and Plan: E.coli with pansensitivity present. Meropenem changed to po Cipro. (3) Acute on chronic kidney failure: Code(s): N17.9 - Acute kidney failure, unspecified; N18.9 - Chronic kidney disease, unspecified Status: Acute Assessment and Plan: Baseline 1.5-1.6 historically. Current Cr is trending back to baseline and is currently 2.0. Continue IVF of LR at 80 ml/hr for hydration. Monitor labs and trend (4) Non-ST elevation myocardial infarction (NSTEMI): Code(s): I21.4 - Non-ST elevation (NSTEMI) myocardial infarction Status: Acute Assessment and Plan: Cardiology co-managing. Xarelto held per their recommendations secondary to pt being chronically anemic with waxing and waning hemoglobin. Will also avoid any anti-platelet medications. No s/s of ACS or complaints of CP. Cardiology added statin of Lipitor 20 mg to medications and recommended continuation of Beta Giovani. No EKG changes to define ACS. Pt in NSR at the time of my exam. ECHO obtained yesterday that shows normal left ventricular systolic function with an ejection fraction estimated to be 55-60%. There is grade 1 diastolic dysfunction and mild pulmonary hypertension. (5) Paroxysmal atrial fibrillation: Code(s): I48.0 - Paroxysmal atrial fibrillation Status: Acute Assessment and Plan: SCD's ordered in the setting that we are holding Xarelto per Cardiology recs. Monitor on telemetry. Continue Beta giovani for rate control. May move out of IMU. (6) Chronic anticoagulation: Code(s): Z79.01 - care home (current) use of anticoagulants Status: Acute Assessment and Plan: Currently holding Xarelto per cardiology recommendations. (7) Bladder cancer: Code(s): C67.9 - Malignant neoplasm of bladder, unspecified Status: Acute Assessment and Plan: Most recent cystoscopy was this past week. No malignancies were appreciated according to the pt. (8) Chronic anemia: Code(s): D64.9 - Anemia, unspecified Status: Acute Assessment and Plan: Chronic in nature, likely secondary to CKD. Continue to monitor and trend serial labs including CBC. No acute s/s of acute bleeding. (9) Edema of right lower extremity: Code(s): R60.0 - Localized edema Status: Chronic Assessment and Plan: Pt states has been present for the past three months. As pt has pain and he states the swelling is persistent, will order venous doppler to rule out any DVT. Plan I discussed today's plan care with patient, all questions were answered to the patient's satisfaction he agrees with plan care. Time Spent With Patient Time with patient: 25 - 35 minutes Subjective Date/time seen: 03/21/23 07:50 Interval history: This very pleasant 88-year-old male patient was examined at the bedside today in interval assessment. He reports he slept well overnight, has no acute complaints other than being sore from the pressure applied yesterday during his echocardiogram denies any shortness of breath. He did report some chills last evening but believes it was due to the room being cold. He did not have any fevers. Results of his echo are noted with normal left ventricular systolic function with estimated ejection fraction 55-60%. There is grade 1 diastolic dysfunction present. There is mild pulmonary hypertension with PASP of 38. Urine culture has grown out E coli w/bernard sensitivity. As pt i
--- NOTE | 2023-03-21 09:53 | PM.PNCARD ---
Progress Note: A&P Assessment and Plan (1) Non-ST elevation [place] (NSTEMI): Code(s): I21.4 - Non-ST elevation (NSTEMI) myocardial infarction Status: Acute Assessment and Plan: Likely type 2 from significant anemia. Hold anticoagulation. Continue metoprolol. Also hold off on anti-platelet therapy given his anemia. Echo does show preserved ejection fraction but with wall motion abnormalities. Will also add a statin to regimen the form atorvastatin 20 mg daily Plan This is an 88-year-old man with a history of atrial fibrillation back in 2019 he has not had a recognized recurrence since then. He has been seeing my partner and has been maintained on Xarelto as well as a modest dose of metoprolol. He now is hospitalized with the above described symptoms he is not having any symptoms compatible with an acute coronary syndrome he is not known to have coronary disease and he does not have any ECG evidence of this. I would conclude this is a type 2 myocardial infarction resulting from the stress of significant anemia. He also has carcinoma of the bladder and is significantly anemic at this time. In my opinion he should not be anticoagulated I will stop both the heparin and the Xarelto. We will continue him on low-dose metoprolol for the time being. It would be reasonable to pursue a stress test as an outpatient once his anemia is worked up and resolved. Subjective Date/time seen: 03/21/23 09:53 Interval history: 88-year-old admitted for UTI Date of service 03/20 24: He feels fine and without chest pain or shortness of breath. Date of service 03/21/2023: Still denying any chest pain, shortness of breath. Still has a little mild amount of right foot swelling Review of Systems Constitutional: Constitutional: Reports lethargy Eyes: Eyes: Reports no additional eye complaints ENT: Reports system reviewed and no additional complaints, except as documented Cardiovascular: Cardiovascular: Reports no additional cardiovascular complaints Respiratory: Respiratory: Reports no additional respiratory complaints Gastrointestinal: Gastrointestinal: Reports no additional gastrointestinal complaints Genitourinary: Genitourinary: Reports no additional male genitourinary complaints Neurologic: Reports system reviewed and no additional complaints, except as documented Endocrine: Endocrine: Reports no additional endocrine complaints Hematologic/Lymphatic: Hematologic/Lymphatic: Reports no additional hematologic/lymphatic complaints Allergic/Immunologic: Allergic/Immunologic: Reports no additional allergic/immunologic complaints Exam Const: General: comfortable HENMT: Mouth: Yes moist mucous membranes Eyes: Sclera: sclerae normal Neck: Neck: supple and no JVD Other: Carotid pulses are intact normal in character bilaterally Resp: Effort & Inspection: normal respiratory effort Auscultation: clear to auscultation bilaterally Cardio: Rate: regular rate Rhythm: regular rhythm Other: Occasional extrasystoles, very soft systolic murmur does not radiate from the left sternal border GI: Auscultation: normal bowel sounds Skin: General skin exam: normal color Neuro: Speech: normal speech Other: Alert and oriented x3 Extrem: Other: 1+ right lower extremity Psych: Affect: normal affect Objective Data Vital Signs Vital Signs: Vital Signs - 24 hr 03/20/23 10:00 03/20/23 11:19 03/20/23 12:00 Temperature 36.9 C Pulse Rate 70 61 Respiratory Rate 16 Blood Pressure 123/52 L Pulse Oximetry 100 Oxygen Delivery Room Air 03/20/23 15:22 03/20/23 16:00 03/20/23 20:00 Temperature 37.2 C 37.1 C Pulse Rate 80 86 Respiratory Rate 18 20 Blood Pressure 119/63 137/57 L Pulse Oximetry 100 99 Oxygen Delivery Room Air 03/20/23 20:23 03/20/23 20:00 03/20/23 12:00 Temperature Pulse Rate 88 86 58 L Respiratory Rate Blood Pressure Pulse Oximetry Oxyge
[2023-03-21] MEDS: FINASTERIDE 5 MG TABLET PO (10:07)
[2023-03-21] MEDS: FOLIC ACID 1 MG TABLET PO (10:07)
[2023-03-21] MEDS: FERROUS SULFATE 325 MG TABLET DR BY MOUTH (10:07)
[2023-03-21] MEDS: TAMSULOSIN HCL 0.4 MG CAPSULE PO (10:07)
[2023-03-21] MEDS: CIPROFLOXACIN 250 MG TABLET PO ×2 (10:07→20:16)
[2023-03-21] MEDS: CHOLECALCIFEROL 1,000 UNITS TABLET 2000 UNITS PO (10:07)
[2023-03-21] MEDS: METOPROLOL TARTRATE 12.5 MG TABLET BY MOUTH ×2 (10:07→20:16)
[2023-03-21] MEDS: ATORVASTATIN 20 MG TABLET PO (10:08)
--- NOTE | 2023-03-21 14:36 | PCPTNOTE ---
pt refused PT evaulation, states his foot hurts and he has not gotten his tylenol yet and will not work with PT
[2023-03-21] MEDS: ACETAMINOPHEN 325 MG TABLET 650 MG PO (14:42)
[2023-03-22] VITALS: PULSE 60
[2023-03-22 04:00] VITALS: PULSE 63
[2023-03-22 05:08] LABS: Basophils Absolute Auto 0.1 K/mm3 (0.0-0.1); Basophils Percent Auto 1.9 % (0.2-1.2); Eosinophils Absolute Auto 0.1 K/mm3 (0-0.3); Eosinophils Percent Auto 2.6 % (0-4.4); Hematocrit 25.1 % (42.0-52.0); Hemoglobin 7.8 g/dL (14.0-18.0); Immature Granulocyte Absolute 0.11 K/mm3 (0.00-0.031); Immature Granulocyte Percent A 2.6 % (0-0.5); Lymphocytes Absolute Auto 1.52 K/mm3 (0.9-3.2); Lymphocytes Percent Auto 35.4 % (18.3-44.2); Mean Corpuscular HGB Conc 31.1 g/dl (32-36); Mean Corpuscular Volume 96.5 fl (80-100); Mean Platelet Volume 9.2 fl (7.4-10.4); Monocytes Absolute Auto 0.6 K/mm3 (0.1-0.6); Monocytes Percent Auto 13.3 % (2.6-8.5); Neutrophils Absolute Auto 1.9 K/mm3 (1.3-6.7); Neutrophils Percent Auto 44.2 % (45.5-73.1); Platelet Count Result 163 k/mm3 (150-375); Red Cell Distribution Width 14.4 % (11.5-14.5); White Blood Count 4.3 K/mm3 (4.5-10.0)
[2023-03-22 05:19] LABS: Alanine Aminotransferase 16 U/L (6-50); Albumin Level 2.9 g/dL (3.5-5.1); Alkaline Phosphatase 54 U/L (38-126); Anion Gap 5 mmol/L (8-16); Aspartate Amino Transferase 39 U/L (17-59); Bilirubin,Total 0.6 mg/dL (0.2-1.3); Blood Urea Nitrogen 21 mg/dL (9-20); Calcium 8.7 mg/dL (8.4-10.2); Carbon Dioxide 24 mmol/L (22-30); Chloride 108 mmol/L (98-107); Estimated CRCL calculation 26 ml/min; Estimated Glomerular Filt Rate 36; Glucose 104 mg/dL (65-110); Magnesium 1.9 mg/dL (1.6-2.3); Potassium 4.2 mmol/L (3.4-5.0); Sodium 137 mmol/L (137-145)
[2023-03-22 06:11] VITALS: BP 143/70; PULSE 61; RESP 18; TEMP 36.4; O2SAT 99
[2023-03-22 08:00] VITALS: BP 151/60; PULSE 79; RESP 16; TEMP 36.7; O2SAT 99
[2023-03-22 09:23] VITALS: PULSE 82
[2023-03-22] MEDS: METOPROLOL TARTRATE 12.5 MG TABLET BY MOUTH (09:23)
[2023-03-22] MEDS: CHOLECALCIFEROL 1,000 UNITS TABLET 2000 UNITS PO (09:23)
[2023-03-22] MEDS: ATORVASTATIN 20 MG TABLET PO (09:24)
[2023-03-22] MEDS: CIPROFLOXACIN 250 MG TABLET PO (09:24)
[2023-03-22] MEDS: FERROUS SULFATE 325 MG TABLET DR BY MOUTH (09:24)
[2023-03-22] MEDS: TAMSULOSIN HCL 0.4 MG CAPSULE PO (09:24)
[2023-03-22] MEDS: FOLIC ACID 1 MG TABLET PO (09:24)
[2023-03-22] MEDS: FINASTERIDE 5 MG TABLET PO (09:24)
--- NOTE | 2023-03-22 09:58 | PM.PNCARD ---
Progress Note: A&P Assessment and Plan (1) Non-ST elevation [place] (NSTEMI): Code(s): I21.4 - Non-ST elevation (NSTEMI) myocardial infarction Status: Acute Assessment and Plan: Likely type 2 from significant anemia. Hold anticoagulation. Continue metoprolol. Also hold off on anti-platelet therapy given his anemia. Echo does show preserved ejection fraction but with wall motion abnormalities. Will also add a statin to regimen the form atorvastatin 20 mg daily. Plan for outpatient stress testing. Cardiology will sign off please call with any questions Subjective Date/time seen: 03/22/23 09:58 Interval history: 88-year-old admitted for UTI Date of service 03/20 23: He feels fine and without chest pain or shortness of breath. Date of service 03/21/2023: Still denying any chest pain, shortness of breath. Still has a little mild amount of right foot swelling Date of service 03/22/2023:Feeling well this morning. Continues to deny chest pain, shortness of breath. Review of Systems Constitutional: Constitutional: Reports lethargy Eyes: Eyes: Reports no additional eye complaints ENT: Reports system reviewed and no additional complaints, except as documented Cardiovascular: Cardiovascular: Reports no additional cardiovascular complaints Respiratory: Respiratory: Reports no additional respiratory complaints Gastrointestinal: Gastrointestinal: Reports no additional gastrointestinal complaints Genitourinary: Genitourinary: Reports no additional male genitourinary complaints Neurologic: Reports system reviewed and no additional complaints, except as documented Endocrine: Endocrine: Reports no additional endocrine complaints Hematologic/Lymphatic: Hematologic/Lymphatic: Reports no additional hematologic/lymphatic complaints Allergic/Immunologic: Allergic/Immunologic: Reports no additional allergic/immunologic complaints Exam Const: General: comfortable, no acute distress, alert and awake HENMT: Mouth: Yes moist mucous membranes Eyes: Sclera: sclerae normal Neck: Neck: supple and no JVD Other: Carotid pulses are intact normal in character bilaterally Resp: Effort & Inspection: normal respiratory effort Auscultation: clear to auscultation bilaterally Cardio: Rate: regular rate Rhythm: regular rhythm Heart sounds: S1 normal heart sound present and S2 normal heart sound present GI: Auscultation: normal bowel sounds Skin: General skin exam: normal color Neuro: Speech: normal speech Other: Alert and oriented x3 Extrem: Other: no edema Psych: Affect: normal affect Objective Data Vital Signs Vital Signs: Vital Signs - 24 hr 03/21/23 10:07 03/21/23 11:30 03/21/23 12:00 Temperature 37.4 C Pulse Rate 66 86 81 Respiratory Rate 18 Blood Pressure 126/70 Pulse Oximetry 97 Oxygen Delivery 03/21/23 11:29 03/21/23 15:39 03/21/23 16:00 Temperature 38.3 C H Pulse Rate 87 83 Respiratory Rate 18 Blood Pressure 143/69 H Pulse Oximetry 99 Oxygen Delivery Room Air 03/21/23 20:00 03/21/23 20:16 03/21/23 20:38 Temperature 36.4 C Pulse Rate 83 75 77 Respiratory Rate 18 18 Blood Pressure 101/47 L Pulse Oximetry 99 98 Oxygen Delivery Room Air 03/21/23 20:00 03/22/23 00:00 03/22/23 04:00 Temperature Pulse Rate 79 60 63 Respiratory Rate Blood Pressure Pulse Oximetry Oxygen Delivery 03/22/23 06:11 03/22/23 08:00 03/22/23 08:19 Temperature 36.4 C 36.7 C Pulse Rate 61 79 Respiratory Rate 18 16 Blood Pressure 143/70 H 151/60 H Pulse Oximetry 99 99 Oxygen Delivery Room Air 03/22/23 09:23 Temperature Pulse Rate 82 Respiratory Rate Blood Pressure Pulse Oximetry Oxygen Delivery Intake/Output Intake/Output: Intake & Output 03/19/23 03/20/23 03/21/23 03/22/23 23:59 23:59 23:59 23:59 Intake Total 1050 2080 1420 560 Output Total 042 321 1158 300 Balance 470 0400 -350 260
--- NOTE | 2023-03-22 10:56 | PM.DS ---
DS: Admitting Diagnosis Discharge Date 03/22/23 Admitting Diagnosis Sepsis Urinary tract infection Acute on chronic kidney failure NSTEMI Paroxysmal atrial fibrillation Chronic anticoagulation Bladder cancer Chronic anemia DS: Discharge Diagnosis Discharge Diagnosis (1) Sepsis: Code(s): A41.9 - Sepsis, unspecified organism Status: Acute (2) Urinary tract infection: Code(s): N39.0 - Urinary tract infection, site not specified Status: Acute (3) Acute on chronic kidney failure: Code(s): N17.9 - Acute kidney failure, unspecified; N18.9 - Chronic kidney disease, unspecified Status: Acute (4) Non-ST elevation myocardial infarction (NSTEMI): Code(s): I21.4 - Non-ST elevation (NSTEMI) myocardial infarction Status: Acute (5) Paroxysmal atrial fibrillation: Code(s): I48.0 - Paroxysmal atrial fibrillation Status: Acute (6) Chronic anticoagulation: Code(s): Z79.01 - long term (current) use of anticoagulants Status: Acute (7) Bladder cancer: Code(s): C67.9 - Malignant neoplasm of bladder, unspecified Status: Acute (8) Chronic anemia: Code(s): D64.9 - Anemia, unspecified Status: Acute (9) Edema of right lower extremity: Code(s): R60.0 - Localized edema Status: Chronic DS: Summary Hospital Course Reason for hospitalization: Sepsis Urinary tract infection Acute on chronic kidney failure NSTEMI Hospital Course: This is an 88 year old male who presented to the hospital on 03/19/23 with fever, chills, nausea, vomiting, and weakness. Labs revealed elevated troponin. He was initially placed on Heparin infusion and cardiology was consulted. Echo was done which shown normal LV systolic function with and EF of 55-60%, grade 1 diastolic dysfunction, mild pulmonary hypertension, normal RV systolic function. Cardiology stopped heparin infusion and started patient on Xarelto. Xarelto was then discontinued along with any antiplatelet medications due to his profound anemia. He was found to have a UTI and Urine culture showing E coli. Patient was placed on Rocephin IV antibiotics transitioned to oral Cipro yesterday with plan to finish a 7 day course. On examination today patient is alert and oriented x3, lying in the bed. He denies any fever, chills, nausea, vomiting, diarrhea, abdominal pain, chest pain or shortness of breath. Labs today reveal WBC 4.3, RBC 2.60, Hgb 7.8, Hct 25.1, BUN 21, Creatinine 1.80, liver enzymes are normal, total protein 6.0, albumin 2.9. Blood cultures showing no growth to date. VSS, he is afebrile, currently on room air. He is stable for discharge at this time. He will need to follow up with cardiology in 2 weeks, primary care physician in 1 week. Final diagnosis: NSTEMI, Acute complicated urinary tract infection, Sepsis, Acute on chronic kidney disease. Status at Discharge Functional status at discharge: independent ambulation Overall status at discharge: patient is progressing back to baseline Time Spent with Patient Time attestation: Total time spent providing and/or coordinating discharge services: Time spent: Greater than 30 minutes Exam Narrative: General: In no acute distress, well nourished Head: atraumatic, no encephalopathy Eyes: EOMI, PERRLA, sclera clear ENT: moist mucous membranes, nasal passages clear Neck: supple, no JVD, no adenopathy, trachea midline Cardiac: Normal S1 and S2. RRR. No murmur, gallops or friction rubs, peripheral pulses intact. Respiratory: Lungs clear to auscultation, no adventitious lung sounds Gastrointestinal: soft, non-distended, non-tender, normoactive bowel sounds. : voiding without difficulty. Extremities: moves all extremities well, mild edema is right leg greater than the left, good ROM, strength 5/5 Skin: clean, dry, intact. No wounds or lesions. Neuro: Alert and oriented x4, cranial nerves intact, no neuro deficits. Psych: normal mood, normal affect, intera
[2023-03-22 11:36] VITALS: BP 112/65; PULSE 78; RESP 18; TEMP 37.1; O2SAT 100
== END 2023-03-22 12:30 | disposition home or self-care (01) | DRG 871 ==
LOC: ANHED 03-19 05:51 → ANHIMU 03-19 07:10
PROVIDERS: Internal Medicine; Nurse Practitioner Adult Health; Physician Assistant; Admitting Provider Internal Medicine; Emergency Provider Emergency Medicine; PCP Family Medicine; Visit Provider Nurse Practitioner Acute Care
DX: A41.9 Sepsis, unspecified organism (principal); I21.A1 Myocardial infarction type 2; N39.0 Urinary tract infection, site not specified; N17.9 Acute kidney failure, unspecified; B96.20 Unspecified Escherichia coli [E. coli] as the cause of diseases classified elsewhere; D63.1 Anemia in chronic kidney disease; C67.9 Malignant neoplasm of bladder, unspecified; I48.0 Paroxysmal atrial fibrillation; I45.10 Unspecified right bundle-branch block; M19.90 Unspecified osteoarthritis, unspecified site; N18.30 Chronic kidney disease, stage 3 unspecified; Z20.822 Contact with and (suspected) exposure to COVID-19; Z87.891 Personal history of nicotine dependence; Z98.49 Cataract extraction status, unspecified eye; Z79.01 Long term (current) use of anticoagulants; Z88.0 Allergy status to penicillin
CPT/HCPCS: 36415; 71045; 74176; 80048; 80053; 81001; 83605; 83690; 83735; 84145; 84484; 85025; 85610; 85730; 87040; 87086; 87186; 87637; 93005; 93306; 93971; 96365; 96366; 96367; 96375; 96376; 97161; 97165; 99291; A9270; G0378; J0696; J1644; J2185; J2405; J7030; J7120

== ENCOUNTER 2024-08-17 07:06 | Outpatient (CLI) | payer MEDICARE, OTHER, SELFPAY ==
--- NOTE | ~2024-08-17 | MR_ITS ---
MRI of the thoracic spine Clinical History: Radicular pain Technique: Axial T2-weighted and gradient images, and sagittal T1-weighted, T2-weighted, and STIR nicole ges were acquired. Findings: There is chronic compression deformity of T12 with moderate loss of height but no marrow ed ant. No other fracture or subluxation seen in the thoracic spine. No bone marrow signal abnormality i dentified. There is multilevel mild disc desiccation and mild to moderate degenerative disc narrowing at the low er thoracic spine. No significant disc bulge or herniation evident. No spinal canal stenosis or cord compression identified. Neural foramina are preserved throughout the thoracic spine. No abnormal signal seen in the spinal cord. Paravertebral soft tissues are unremarkable. Impression: Chronic T12 compression fracture. Minimal degenerative change in the thoracic spine, as above. Reviewed, dictated and finalized at [facility]. Impression: Chronic T12 compression fracture. Minimal degenerative change in the thoracic spine, as above.
== END 2024-08-17 07:07 | disposition home or self-care (01) ==
LOC: MICIMG 07:09
PROVIDERS: PCP Family Medicine; Visit Provider Nurse Practitioner Family
DX: M54.16 Radiculopathy, lumbar region (principal)
CPT/HCPCS: 72146

== ENCOUNTER 2024-11-30 10:29 | Outpatient (CLI) | payer MEDICARE, OTHER, SELFPAY ==
--- NOTE | 2024-11-30 10:43 | ECG_ITS ---
Test Date: 2024-11-30 11:00:19 Measurements Intervals [place] Rate: 72 P: 0 MO: 0 QRS: 70 QRSD: 140 T: 9 QT: 415 QTc: 457 Interpretive Statements SINUS RHYTHM WITH ATRIAL PREMATURE COMPLEX BORDERLINE AV CONDUCTION DELAY RIGHT BUNDLE BRANCH BLOCK BASELINE ARTIFACT- I, II, III, AVR, AVL, AVF ABNORMAL ECG No previous ECG available for comparison Electronically Signed On 11-30-2024 11:29:47 CDT by Eleuterio Toledo D.O.
--- OUTSIDE RECORDS SUMMARY | 2024-11-30 11:40 | XMS_ITS | Clinical Summary ---
Author Organization [facility] [employer] Address [address] [place] [address] Care Team Providers Care Lace Stripper Name Role Phone Unavailable Primary Care Provider Unavailabl e Source Comments [facility],non-owned Affiliates and Associated Physician Practices is amultiple site organization consisting of ambulatory clinics and hospital sitesin [place], [place], [place] and [place]. This disclosure is being madepursuant to the Care Everywhere program and may not contain all information available regarding this patient. Last updated 17.[facility] Social History Tobacco Use Types Packs/Day Years Used Date Smoking Tobacco: Never Assessed Sex and Gender Information Value Date Recorded Sex Assigned at Male 02/24/2024 1:50 PM PREHEMMER Legal Sex Male 1:50 PM PREHEMMER Gender Identity Not on file Sexual Orientation Not on file Plan of Treatment Health Maintenance Due Date Last Done Comments MEDICARE AWV 12 MONTHS 1936 DTAP/TDAP/TD VACCINES (1 - Tdap) 1955 PNEUMOCOCCAL VACCINE 50+ (1 of 1 - PCV) 1986 ZOSTER VACCINE (1 of 2) 1986 Respiratory Syncytial Virus (RSV) Vaccine Pt: or over 60 yrs (1 - 1-dose 75+ series) 2011 DEPRESSION SCREENING 02/09/2024 COVID-19 VACCINE (4 - 2024- season) 2024 01/07/2021, 04/19/2020, 03/22/2020 INFLUENZA VACCINE (#1) 2024 2, 12/25/2020, 11/13/2019, Additional history exists HEPATITIS B VACCINE Aged Out No longe r eligible based on patient's age to complete this topic HIB VACCINE Aged Out No longer eligi ble based on patient's age to complete this topic HPV VACCINE Aged Out No longer eligi ble based on patient's age to complete this topic MENINGOCOCCAL (Group B) VACCINE SHARED DECISION-MAKING Aged Out No longer eligible based on patient's age to complete this topic MENINGOCOCCAL GROUPS A/C/Y/W VACCINE Aged Out No longer eligible based on patient's age to complete this topic Insurance MEDICARE
--- OUTSIDE RECORDS SUMMARY | 2024-11-30 11:40 | XMS_ITS | Clinical Summary ---
Author Organization [facility] Address [address] [place] [address] Care Team Providers Care Supervisor [employer] Name Role Phone Shola Ortega MD Primary Care Provider ChioBernard MD Unavailable [phone] Allergies Active Allergy Reactions Criticality Noted Date Comments Amoxicillin Hives,Stomach upset High 06/06/2013 Other reaction(s): Unknown Put in afib also Medications tamsulosin (FLOMAX) 0.4 mg extended release capsule 09/12/19 20 Active finasteride (PROSCAR) 5 mg tablet Take 1 tablet (5 mg total) by mouth daily 90 tablet 3 09/08/19 23 Active folic acid (FOLVITE) 1 mg tablet Take 1 tablet (1 mg total) by mouth daily 10/28/19 23 Active cholecalciferol (VITAMIN D-3) 2000 unit capsule Take 1 capsule (2,000 Units total) by mouth daily 10/28/19 23 Active neomycin-polymyxin- dexAMETHasone (MAXITROL) 3.5mg/mL-10,000 unit/mL-0.1 % ophthalmic suspension Administer 1 drop into affected eye(s) nightly 10/22/19 23 Active ferrous sulfate ER 324 mg (65 mg iron) EC tabletIndications:I donavon Deficiency Anemia Take 65 mg by mouth Active Xarelto 15 mg tabletIndications:C hronic anticoagulation TAKE 1 TABLET DAILY 90 tablet 3 01/17/20 24 Active metoprolol tartrate (LOPRESSOR) 25 mg immediate release tabletIndications:P aroxysmal atrial fibrillation (HCC) Take 0.5 tablets (12.5 mg total) by mouth 2 (two) times a day 90 tablet 2 03/22/19 25 Active Active Problems Problem Noted Date Diagnosed Date Abnormal stress test 05/28/2023 Medication side effects 05/28/2023 Orthostatic hypotension 08/25/2022 Nonrheumatic aortic valve stenosis 02/18/2022 Pulmonary HTN 02/18/2022 WOO (dyspnea on exertion) 11/04/2021 Weakness 11/04/2021 Viral illness 11/04/2021 Localized edema 11/04/2021 Malignant neoplasm of overlapping sites of bladd er 02/26/2021 Lipid screening 09/18/2019 CKD (chronic kidney disease) stage 3, GFR 30-59 ml/min 09/07/2018 Paroxysmal atrial fibrillation (CMS/HCC) 019 Chronic anticoagulation 09/07/2018 Preoperative cardiovascular examination 09/08/19 19 Left ear pain 05/13/2018 Sensorineural hearing loss (SNHL) of both ears 0 05/13/2018 Abnormal computed tomography scan 02/20/2015 Lung mass 02/20/2015 Squamous cell carcinoma of floor of mouth 2015 Encounters Date Type Department Care Team Description 11/28/2024 11:00 AM CDT Lab [id number] [place] [address] Arrived 09/14/2024 Telephone [facility] Cardiology [address] [place] [phone] Klaus Rey MD 09/13/2024 Telephone [facility] Cardiology [address] [place] [phone] Klaus Rey MD from Last 3 Months Surgical History Surgery Date Site/Laterality Comments KNEE SURGERY APPENDECTOMY 02/08/1943 - 02/08/1944 JOINT REPLACEMENT Apr & Nov 2008 CATARACT EXTRACTION 02/08/2022 - 02/07/2023 Left BLADDER SURGERY SEP & DEC 2019 Medical History Medical History Date Comments HL (hearing loss) Hypertension Cancer (HCC) Arthritis Dental disease 1960 Tinnitus 1999 Family History Medical History Relation Name Comments Cancer Father Deejay Ken Sawyer Family his tory of malignant neoplasm - (Added by TW Conv) Heart failure Mother Lisa Lippold Relation Name Status Comments Father Deejay Jacques (Age 61) Mother Lisa Jacques (Age 80) Social History Tobacco Use Types Packs/Day Years Used Date Smoking Tobacco: Former Cigarettes 1 15 0 06/08/1953 - 07/10/1967 Smokeless Tobacco: Former Chew Quit: 06/08/1953 Alcohol Use Standard Drinks/Week Comments Yes 6 (1 standard drink = 0.6 oz pur e alcohol) AUDIT-C Answer Date Recorded Q1: How often do you have a drink containing alc ohol? Monthly or less 09/07/2022 Average Number of Drinks Not on file 023 Frequency of Binge Drinking Not on file 08/10 Sex and Gender Information Value Date Recorded Sex Assigned at Not on file Legal Sex Male 6:56 AM BUSINESS PROCESS ANALYST Gender Identity Male 11/14/2018 9:43 AM CDT Sexual Orientation Straight 11/14/2018 9: 43 AM CDT Obstetrics History Last Filed Vital Signs Vital Sign Reading Time Taken Comments Blood Pressure 92/50 12/28/2023 9:51 AM BUSINESS PROCESS ANALYST Pulse 67 12/28/2023 9:51 AM BUSINESS PROCESS ANALYST Temperature 36.5 C (97.7 F) 09/13/2019 10:52 AM CDT Respiratory Rate - - Oxygen Saturation 98% 12/28/2023 9:51 AM BUSINESS PROCESS ANALYST Inhaled Oxygen Concentration - - Weight 77.2 kg (170 lb 3.2 oz) 12/28/2023 9:51 A M BUSINESS PROCESS ANALYST Height 177.8 cm (5' 10) 12/28/2023 9:51 AM BUSINESS PROCESS ANALYST Body Mass Index 24.42 12/28/2023 9:51 AM BUSINESS PROCESS ANALYST Plan of Treatment Health Maintenance Due Date Last Done Comments Depression Screening 1936 Fall Risk Assessment 1936 Hepatitis B Screening 1954 Well Visit 65+ 2001 Zoster Vaccine (2 of 3) 08/05/2020 06/11/19, 04/06/2019, 11/11/2016 Covid-19 Vaccine (4 - 2024-2 6 season) 2024 01/07/2021, 04/19/2020, 03/22/2020 Influenza Vaccine (#1) 2024 , 12/24/2021, 12/25/2020, Additional history exists DTaP/Tdap/Td Vaccine (2 - Td or Tdap) 11/11/2026 11/11/2016 Pneumococcal vaccine 65+ Completed 017, 12/11/2013, 06/20/2006 Procedures Procedure Name Priority Date/Time Associated Diagnosis Comments EGFR Routine 11/28/2024 11:42 AM CDT URINALYSIS, MICROSCOPIC ONLY Routine 11/28/2024 11:42 AM CDT DIFFERENTIAL AUTO Routine 11/28/2024 11: 42 AM CDT URINALYSIS AND REFLEX TO MICROSCOPIC Routine 11/28/2024 11:42 AM CDT COMPREHENSIVE METABOLIC PANEL Routine 11/28/2024 11:42 AM CDT ERYTHROCYTE SEDIMENTATION RATE Routine 11/28/2024 11:42 AM CDT CBC WITH AUTO DIFFERENTIAL Routine 11/28/2024 11:42 AM CDT CRP (ACUTE PHASE) Routine 11/28/2024 11: 42 AM CDT from Last 3 Months Results * (ABNORMAL) eGFR (11/28/2024 11:42 AM CDT) eGFR 29(L) >=60 mL/min/1. 73 m2 Comment: Interpretive Data Reference Interval Normal >/= 90 mL/min/1.73m2 Mildly decreased* 60 - 89 mL/min/1.73m2 Mildly to moderately decreased 45 - 59 mL/min/1.73m2 Moderately to severely decreased 30 - 44 mL/min/1.73m2 Severely decreased 15 - 29 mL/min/1.73m2 Kidney Failure < 15 mL/min/1.73m2 *Relative to young adult level Estimated glomerular filtration rate is determined by the 2020 CKD-EPI equation recommended by the National Kidney Foundation (A Unifying Approach to GFR Estimation: Recommendations of the NKF-ASK Task Force on Reassessing the Inclusion of Race in Diagnosing Kidney Disease, JASN 2020). The CKD-EPI equation should not be used for patients with unstable renal function and has not been validated in children and those over 70. Current interpretive data was last reviewed 2020. Blood 11/28/2024 11:4 2 AM CDT 11/28/2024 1:51 PM CDT us Nallely Pagan NP LAB BLOOD ORDERABLES Final Re sult [facility] [address] [place] [address] * (ABNORMAL) Differential, auto (11/28/2024 11:42 AM CDT) Neutrophil abs 1.94 1.50 - 6.50 K/cumm Imm gran abs 0.06 0.00 - 0.10 K/cumm [facility] Lymphocyte abs 2.21 0.80 - 3.30 K/cumm [facility] Monocyte abs 0.57 0.20 - 0.80 K/cumm [facility] Eosinophil abs 0.18 0.00 - 0.50 K/cumm [facility] Basophil abs 0.16(H) 0.00 - 0.10 K/cumm [facility] Neutrophil pct 37.9 % [facility] Comment: Interpretive Data Percent cell count reference ranges are not reported, since discordance with absolute values may lead to misinterpretation of CBC data. Current Interpretive Data was last revised on 2017. Imm gran pct 1.2 % [facility] Comment: Interpretive Data Percent cell count reference ranges are not reported, since discordance with absolute values may lead to misinterpretation of CBC data. Current Interpretive Data was last revised on 2017. Lymphocyte pct 43.2 % [facility] Comment: Interpretive Data Percent cell count reference ranges are not reported, since discordance with absolute values may lead to misinterpretation of CBC data. Current Interpretive Data was last revised on 2017. Monocyte pct 11.1 % [facility] Comment: Interpretive Data Percent cell count reference ranges are not reported, since discordance with absolute values may lead to misinterpretation of CBC data. Current Interpretive Data was last revised on 2017. Eosinophil pct 3.5 % [facility] Comment: Interpretive Data Percent cell count reference ranges are not reported, since discordance with absolute values may lead to misinterpretation of CBC data. Current Interpretive Data was last revised on 2017. Basophil pct 3.1 % [facility] Comment: Interpretive Data Percent cell count reference ranges are not reported, since discordance with absolute values may lead to misinterpretation of CBC data. Current Interpretive Data was last revised on 2017. Blood 11/28/2024 11:4 2 AM CDT 11/28/2024 1:51 PM CDT us Nallely Pagan NP LAB BLOOD ORDERABLES Final Re sult [facility] [address] [place] [address] * (ABNORMAL) Urinalysis reflex to microscopic (11/28/2024 11:42 AM CDT) Color, ur Yellow Yellow Clarity, ur Clear Clear [facility] Specific gravity, ur 1.019 1.003 - 1.030 [facility] pH, urine 6.0 [facility] Comment: Interpretive Data U rine pH is affected by diet, medications, systemic acid-base disturbances, and renal tubular function. pH may affect urinary stone formation. For example, urine pH below 6.0 may help reduce the tendency for calcium phosphate stones and pH greater than 6.0 may reduce the tendency for uric acid stone formation. Source: [facility] Current Interpretive Data was last revised on 2017 Protein, ur ql 1+(A) Negative [facility] Glucose, ur ql Negative Negative [facility] Ketones, ur Negative Negative [facility] Bilirubin, ur Negative Negative [facility] Blood, ur Negative Negative [facility] Urobilinogen, ur <2.0 <2.0 mg/dL [facility] Nitrite, ur Negative Negative [facility] Leukocyte esterase, ur 2+(A) Negative [facility] UA reflex comment Reflex to microscopic UA will be performed. [facility] Urine, bladder 11/28/2024 11 :42 AM CDT 11/28/2024 1:48 PM CDT Nallely Pagan NP LAB URINE ORDERABLES Final Re sult Performing Organization Address [facility] Co de Phone Number FELICITA [address] [address] * (ABNORMAL) CBC with auto differential (11/28/2024 11:42 AM CDT) Pathologist [facility] WBC 5.12 3.80 - 9.90 K/cumm Hgb 9.6(L) 13.0 - 17.5 g/dL [facility] Hct 29.7(L) 38.9 - 50.3 % [facility] Plt 288 150 - 400 K/cumm [facility] MPV 9.3 9.1 - 12.3 fL [facility] RBC 3.16(L) 4.30 - 5.80 M/cumm [facility] MCV 94.0 81.3 - 96.4 fL [facility] MCH 30.4 27.1 - 33.3 pg [facility] MCHC 32.3 32.3 - 35.7 g/dL [facility] RDW CV 13.4 11.1 - 14.9 % [facility] RDW SD 46.0 35.7 - 48.1 fL [facility] NRBC abs 0.00 0.00 - 0.01 K/cumm [facility] Blood 11/28/2024 11:4 2 AM CDT 11/28/2024 1:51 PM CDT Nallely Pagan NP LAB BLOOD ORDERABLES Final Re sult Performing Organization Address City/[facility]/ZIP Co de Phone Number [address] [place] [place] [address] * (ABNORMAL) Urinalysis, microscopic only (11/28/2024 11:42 AM CDT) Pathologist [facility] WBC, ur 11-20(A) 0 - 5 /HPF RBC, ur 3-5(A) 0 - 2 /HPF [facility] Epithelial cells, squamous, ur 1-5 0 - 5 /HPF [facility] Bacteria, ur Trace(A) [facility] Mucous, ur Present(A) [facility] Urine, bladder 11/28/2024 11 :42 AM CDT 11/28/2024 1:48 PM CDT Nallely Pagan NP LAB URINE ORDERABLES Final Re sult Performing Organization Address [facility] Co de Phone Number [address] [place] [place] [address] * (ABNORMAL) Erythrocyte sedimentation rate (11/28/2024 11:42 AM CDT) [facility] Erythrocyte sedimentation rate 50(H) 1 - 20 mm/hr Blood 11/28/2024 11:4 2 AM CDT 11/28/2024 1:51 PM CDT Nallely Pagan NP LAB BLOOD ORDERABLES Final Re sult Performing Organization Address [facility] Co de Phone Number [address] [address] * (ABNORMAL) CRP (acute phase) (11/28/2024 11:42 AM CDT) [facility] CRP 35.4(H) <=10.0 mg/L Blood 11/28/2024 11:4 2 AM CDT 11/28/2024 1:51 PM CDT Nallely Pagan NP LAB BLOOD ORDERABLES Final Re sult Performing Organization Address [facility] Co de Phone Number [address] [address] * (ABNORMAL) Comprehensive metabolic panel (11/28/2024 11:42 AM CDT) [facility] Sodium 137 135 - 145 mmol/L Potassium, pl 4.0 3.3 - 4.9 mmol/L [facility] Chloride 104 97 - 110 mmol/L [facility] CO2 23 22 - 32 mmol/L [facility] Anion gap 10 2 - 15 mmol/L [facility] BUN 40(H) 6 - 25 mg/dL [facility] Creatinine 2.13(H) 0.80 - 1.30 mg/dL [facility] Glucose 106 70 - 199 mg/dL [facility] Comment: Interpretive Data Fasting glucose >/= 126 mg/dl is diagnostic for diabetes. Fasting is defined as no caloric intake for at least 8 hours. Fasting glucose between 100 mg/dl to 125 mg/dl is diagnostic of prediabetes. In a patient with classic symptoms of hyperglycemia or hyperglycemic crisis, a random glucose >/= 200 mg/dl is diagnostic for diabetes. In the absence of unequivocal hyperglycemia, results should be confirmed by repeat testing. The classification and Diagnosis of Diabetes Diabetes Care 202; 46: S19-S40. Current interpretive data was last revised 2022. Calcium 9.1 8.5 - 10.3 mg/dL [facility] Bilirubin, total 0.4 0.1 - 1.2 mg/dL [facility] Protein, pl 7.2 6.5 - 8.5 g/dL [facility] Albumin 3.7 3.5 - 5.0 g/dL [facility] Alk phos 64 40 - 130 Units/L [facility] ALT 6(L) 7 - 55 Units/L [facility] AST 22 10 - 50 Units/L [facility] Blood 11/28/2024 11:4 2 AM CDT 11/28/2024 1:51 PM CDT Nallely Pagan NP LAB BLOOD ORDERABLES Final Re sult [facility] [address] [place] [address] from Last 3 Months Insurance [place] [address] MEDICARE FOR LIFE MEDICARE [facility] Advance Directives For more information, please contact: [phone] Documents on File Type Date Recorded 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
== END 2024-11-30 10:30 | disposition home or self-care (01) ==
LOC: ANHCARD 10:37
PROVIDERS: PCP Family Medicine; Visit Provider Nurse Practitioner Family
DX: Z01.818 Encounter for other preprocedural examination (principal); I45.9 Conduction disorder, unspecified; I45.10 Unspecified right bundle-branch block
CPT/HCPCS: 93005